=== PATIENT | female | born 1995 | race Caucasian/White ===

== ENCOUNTER 2018-12-02 03:55 | Emergency (ER) | payer MEDICAID ==
[~2018-12-02] VITALS: Ht 160 cm; Wt 53.5 kg
[2018-12-02 04:01] VITALS: Ht 160 cm; Wt 53.5 kg
[2018-12-02 05:01] VITALS: BP 115/63
== END 2018-12-02 05:01 | disposition home or self-care (01) ==
LOC: ED 03:55
DX: J02.9 Acute pharyngitis, unspecified (principal); H66.92 Otitis media, unspecified, left ear; G43.909 Migraine, unspecified, not intractable, without status migrainosus; Z91.030 Bee allergy status; Z91.018 Allergy to other foods